=== PATIENT | female | born 1980 | race Caucasian/White ===

== ENCOUNTER 2018-06-07 15:20 | Emergency (ER) | payer MEDICAID ==
[2018-06-07 17:16] LABS: % BASOPHILS 0.1 % (0.0-2.0); % EOSINOPHILS 0.6 % (0.0-5.0); % MONOCYTES 4.3 % (2.0-10.0); EOSINOPHILE ABSOLUTE 0.1 Th/cmm (0.1-0.4); HEMATOCRIT 39.9 % (41.0-60); HEMOGLOBIN 13.2 gm/dL (12-16); LYMPHOCYTE ABSOLUTE 1.3 Th/cmm (1.5-3.0); MEAN CORPUSCULAR HEMOGLOBIN 27.1 pg (27.0-31.0); MEAN PLATELET VOLUME 8.5 fl; MONOCYTE ABSOLUTE 0.5 Th/cmm (0.3-1.0); NEUTROPHILE ABSOLUTE 10.7 Th/cmm (1.8-8.0); PLATELET COUNT 322 Th/cmm (150-400); RED BLOOD COUNT 4.87 Mil/cmm (3.80-5.10); RED CELL DISTRIBUTION WIDTH 13.7 % (11.5-20.0); WHITE BLOOD COUNT 12.6 Th/cmm (4.8-10.8)
[2018-06-07 17:18] LABS: ALB/GLOB RATIO 1.1 (1.0-1.8); ALKALINE PHOSPHATASE 70 U/L (34-104); AMYLASE SERUM 19 U/L (29-103); ANION GAP 15.4 (7.0-16.0); BILIRUBIN,TOTAL 0.7 mg/dL (0.3-1.0); BUN - UREA NITROGEN 8 mg/dL (7-25); CALCIUM SERUM 9.7 mg/dL (8.6-10.3); CARBON DIOXIDE 22.9 mEq/L (21.0-31.0); CHLORIDE 99 mEq/L (98-107); CREATININE - SERUM 0.2 mg/dL (0.6-1.2); GFR AFRICAN-AMERICAN > 60.0 ml/min (>90); GFR NON AFRICAN-AMERICAN > 60.0 ml/min; GLUCOSE 111 mg/dL (70-105); POTASSIUM SERUM 3.3 mEq/L (3.5-5.1); SGOT 17 U/L (13-39); SGPT/ALT 18 U/L (7-52); SODIUM SERUM 134 mEq/L (136-145); TOTAL PROTEIN,SERUM 7.5 gm/dL (6.0-8.3)
[2018-06-07 17:20] LABS: INR 0.92 (0.5-1.4); PROTHROMBIN TIME (TEST) 9.6 SECONDS (9.5-11.5)
[2018-06-07 17:35] LABS: URINE SOURCE RANDOM
[2018-06-07 17:38] LABS: URINE BILIRUBIN NEGATIVE (NEGATIVE); URINE BLOOD NEGATIVE (NEGATIVE); URINE GLUCOSE (UA) NEGATIVE (NEGATIVE); URINE KETONE NEGATIVE (NEGATIVE); URINE LEUKOCYTE ESTERASE NEGATIVE (NEGATIVE); URINE NITRATE NEGATIVE (NEGATIVE); URINE PH 8.5 (4.6 - 8.0); URINE PROTEIN NEGATIVE (NEGATIVE); URINE UROBILINOGEN 0.2 E.U./dL (0.2 - 1.0)
[2018-06-07 17:50] LABS: URINE CLARITY SLIGHT HAZY (CLEAR); URINE COLOR YELLOW
[2018-06-07 17:54] LABS: URINE EPITHELIAL CELLS RARE /lpf (FEW); URINE MICROSCOPIC INDICATED? YES; URINE RBC NONE SEEN /hpf (0-5); URINE WBC NONE SEEN /hpf (0-5)
[2018-06-07 17:55] LABS: URINE BACTERIA NONE SEEN /hpf (NONE SEEN)
[2018-06-07 18:01] LABS: AMPHETAMINE URINE NEGATIVE (NEGATIVE); BARBITURATES URINE NEGATIVE (NEGATIVE); BENZODIAZEPINES QUAL URINE NEGATIVE (NEGATIVE); CANNABINOID THC NEGATIVE (NEGATIVE); COCAINE METABOLITE QUAL URINE NEGATIVE (NEGATIVE); METHADONE URINE NEGATIVE (NEGATIVE); METHAMPHETAMINES QUAL URINE NEGATIVE (NEGATIVE); OPIATES (MORPHINE) QUAL. URINE POSITIVE (NEGATIVE); PHENCYCLIDINE (PCP) URINE NEGATIVE (NEGATIVE); TRICYCLICS (TCA) QUAL. URINE NEGATIVE (NEGATIVE)
[2018-06-07] MEDS ORDERED: Potassium Chloride Elixir 20 mEq /15 mL UDC PO ONE (20:14)
[2018-06-07] MEDS ORDERED: Potassium Chloride Elixir 20 mEq /15 mL UDC ONE (20:17)
[2018-06-07] MEDS ORDERED: HYDROmorphone 1 mg/mL 1mL Syr IM STA (21:13)
[2018-06-07] MEDS ORDERED: HYDROmorphone 1 mg/mL 1mL Syr ONE (21:18)
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
--- NOTE | 2018-06-08 11:14 | Diagnostic Imaging Report ---
CT abdomen and pelvis without intravenous contrast Indication: Abdominal pain Comparison: None, Technique: Axial images were obtained from the lung bases to the bilateral proximal femurs without IV contrast. Coronal reconstructions were made. total DLP: [id number], CTDI14.4 FINDINGS: Exam is limited due to body habitus. Hypoventilatory and atelectatic changes of the lungs are noted. Extensive postsurgical changes are seen throughout the spine with evidence of posterior fusion extending from the visualized thoracic spine to the bilateral SI joints. Streak artifact from fusion hardware does limit the exam. Assessment of the solid organs is also limited due to lack of IV contrast. No evidence of focal hepatic, splenic, pancreatic, or adrenal lesions. No evidence of hydronephrosis or focal renal lesions. Distended urinary bladder is noted. Moderate stool is noted. There may be mild bowel wall thickening the region of the hepatic flexure. No appendicitis. Punctate densities within the appendix may be due to secretions or tiny appendicoliths. Right adnexal fullness is seen with 2.2 cm cystic lesion. No free fluid or free air. Severe scoliosis is noted. IMPRESSION: Limited exam due to streak artifact from extensive spinal scoliosis fixation hardware. Questionable mild bowel wall thickening along the hepatic flexure. Inflammatory or less likely infiltrative process cannot be excluded, please correlate clinically. No evidence of appendicitis. Tiny densities in the appendiceal lumen which may be due to small secretions versus tiny appendicoliths. 2.2 cm right adnexal cystic lesion possibly a follicular cyst. Ultrasound would further clarified Distended urinary bladder.
== END 2018-06-07 21:25 | disposition home or self-care (01) ==
LOC: ER 15:20
DX: K52.9 Noninfective gastroenteritis and colitis, unspecified (principal); M51.36 Other intervertebral disc degeneration, lumbar region; M19.90 Unspecified osteoarthritis, unspecified site; Z86.73 Personal history of transient ischemic attack (TIA), and cerebral infarction without residual deficits; Z98.890 Other specified postprocedural states
CPT/HCPCS: 99284; 96372 ×2; 74176; 84484 ×2; 36415; 80307; 85025; 85610; 81001; 82150; 81025; 80053; 87040 ×2; Q0162; J1885; J1170; Z7502